=== PATIENT | male | born 1960 | race African-American/Black ===

== ENCOUNTER 2025-01-29 13:40 | Emergency (ER) | payer OTHER, MEDICAID ==
[~2025-01-29] VITALS: Ht 180.3 cm; Wt 91.0 kg
[~2025-01-29 13:40] MED LIST: [UNRECOGNIZED DRUG - REMARK]
[2025-01-29 13:45] VITALS: O2SAT 97
[2025-01-29 13:55] VITALS: BP 135/86; PULSE 89; RESP 16; TEMP 36.7; O2SAT 98
[2025-01-29 15:13] LABS: BASOPHILS % 0.3 % (0.0-2.0); EOSINOPHILS % 0.8 % (0.0-5.0); HEMATOCRIT. 43.8 % (42.0-52.0); HEMOGLOBIN. 14.5 g/dL (14.0-18.0); LYMPHOCYTES % 8.7 % (20.0-50.0); MEAN CORPUSCULAR HEMOGLOBIN 29.3 pg (28.0-32.0); MEAN CORPUSCULAR HGB CONC 33.2 g/dL (31.0-37.0); MEAN CORPUSCULAR VOLUME 88.5 fL (80.0-94.0); MONOCYTES % 8.5 % (2.0-8.0); NEUTROPHILS % 81.7 % (40.0-76.0); PLATELET 188 x1000/uL (130-400); RED BLOOD CELL COUNT 4.95 mill/uL (4.7-6.1); RED CELL DISTRIBUTION WIDTH 14.3 % (11.6-14.6); WHITE BLOOD COUNT 8.8 x1000/uL (4.5-11.0)
[2025-01-29 15:20] LABS: POTASSIUM 4.5 mEq/L (3.5-5.1)
[2025-01-29 15:21] LABS: CALCIUM 9.4 mg/dL (8.7-10.4)
[2025-01-29 15:26] LABS: CREATININE 2.9 mg/dL (0.6-1.3)
== END 2025-01-29 15:43 | disposition home or self-care (01) ==
LOC: ER 13:40
DX: Z91.158 Patient's noncompliance with renal dialysis for other reason (principal); Z99.2 Dependence on renal dialysis; Z13.89 Encounter for screening for other disorder; Z79.899 Other long term (current) drug therapy
CPT/HCPCS: 36415; 71045; 80048; 85025; 93005; 99285

== ENCOUNTER 2025-02-15 10:03 | Emergency (ER) | payer OTHER, MEDICAID ==
[~2025-02-15] VITALS: Ht 172.7 cm; Wt 77.0 kg
[2025-02-15 10:12] VITALS: TEMP 37; O2SAT 100
[2025-02-15] MEDS: ACETAMINOPHEN 500MG TABLET PO ONE (10:59)
[2025-02-15] MEDS ORDERED: APIX5TAB MT (11:47)
[2025-02-15 11:53] VITALS: BP 124/81; PULSE 78; RESP 18; O2SAT 100
== END 2025-02-15 12:09 | disposition home or self-care (01) ==
LOC: ER 10:03
DX: I82.431 Acute embolism and thrombosis of right popliteal vein (principal); Z99.2 Dependence on renal dialysis
CPT/HCPCS: 72040; 93971; 99284

== ENCOUNTER 2025-03-08 11:27 | Emergency (ER) | payer OTHER, MEDICAID ==
[~2025-03-08] VITALS: Ht 180.3 cm; Wt 91.0 kg
[~2025-03-08 11:27] MED LIST changes: +APIX5TAB MT
[2025-03-08 11:48] VITALS: O2SAT 98
[2025-03-08 16:14] VITALS: BP 161/98; PULSE 58; RESP 18; TEMP 36.8; O2SAT 98
[2025-03-08 16:19] LABS: CLARITY URINE SL HAZY (CLEAR); COLOR URINE YELLOW (YELLOW); GLUCOSE URINE NEGATIVE (NEGATIVE); PROTEIN URINE 2+ (NEGATIVE)
[2025-03-08 16:20] LABS: KETONES URINE NEGATIVE (NEGATIVE); LEUKOCYTE ESTERASE URINE 2+ (NEGATIVE); NITRITE URINE POSITIVE (NEGATIVE); OCCULT BLOOD URINE 2+ (NEGATIVE); UROBILINOGEN URINE 0.2 E.U./dL (0.2-1.0)
[2025-03-08 16:28] LABS: RBC URINE 15-25 /hpf (0-2); WBC URINE 15-25 /hpf (0-2)
[2025-03-08 16:29] LABS: BACTERIA URINE 3+; SQUAMOUS EPITHELIAL CELL URINE NONE SEEN /lpf (RARE/1+); YEAST URINE NONE SEEN
== END 2025-03-08 16:18 | disposition home or self-care (01) ==
LOC: ER 11:27
DX: N18.6 End stage renal disease (principal); Z86.718 Personal history of other venous thrombosis and embolism; Z99.2 Dependence on renal dialysis
CPT/HCPCS: 71045; 81003; 93971; 99284